=== PATIENT | female | born 1945 | race American Indian/Alaskan Native ===

== ENCOUNTER 2018-01-15 12:46 | Emergency (ER) | payer MEDICARE ==
[2018-01-15 12:56] VITALS: BP 153/66
--- NOTE | 2018-01-15 13:40 | Emergency Department Report ---
ED Rash HPI - HPI Chief Complaint: Skin Rash Stated Complaint: RASH Time Seen by Provider: 01/15/18 13:07 Duration: 3 Days Location: Head Suspected Cause: Unknown Rash Symptoms: Yes Itching, Yes Blistering, No Facial Swelling, No Tongue/Oral Swelling, No Breathing Difficulties, No Choking Sensation, No Wheezing/Dyspnea, No Peeling, No Fever, No Lightheaded, No Malaise, No Myalgias Severity: moderate Other History: This is a 72 y.o. female that presents with painful rash to left side of face starting from forehead to left side of nose. Rash appeared Saturday with just 2 bumps at base of left forehead then yesterday the rash traveled down to nose. Reports left eye has clear discharge w/o redness. Reports rash as very painful. She is not putting anything on rash at this time or taking anything for symptoms. Denies visual changes, swelling, and numbness. ED Review of Systems ROS: Stated complaint: RASH Other details as noted in HPI Constitutional: denies: chills, fever Respiratory: denies: cough, shortness of breath, wheezing Cardiovascular: denies: chest pain, palpitations, syncope Gastrointestinal: denies: abdominal pain, nausea, diarrhea Skin: lesions (rash to left side of face from forehead to nose). denies: rash Neurological: denies: headache, weakness, paresthesias Psychiatric: denies: anxiety, depression ED Past Medical Hx - Past Medical History Hx Diabetes: Yes - Surgical History Past Surgical History?: Yes Additional Surgical History: 1986 Hysterectomy - Social History Smoking Status: Never Smoker Substance Use Type: None - Medications Home Medications: Home Medications Medication Instructions Recorded Confirmed Last Taken Type Acetaminophen/Codeine [Tylenol 1 tab PO Q6H PRN #20 tab 01/15/18 Unknown Rx /Codeine # 3 tab] Carboxymethylcellulose Sodium 15 ml OP QID PRN #1 bottle 01/15/18 Unknown Rx [Refresh Tears] Valacyclovir HCl [Valtrex] 1,000 mg PO TID 7 Days #21 tab 01/15/18 Unknown Rx Rash Exam - Exam General: Vital signs noted. No distress. Alert and acting appropriately. HEENT: No Periorbital Edema, No Conjuctival Injection, No Chemosis, No Perioral Edema, No Tongue Edema, No Uvular Edema, No Compromised Airway, No Drooling Lungs: Yes Good Air Exchange (Normal Breath Sounds), No Wheezes, No Ronchi, No Stridor, No Cough, No Labored Respirations, No Retractions, No Use of Accessory Muscles, No Other Abnormal Lung Sounds Heart: Yes Regular, No Murmur Skin: Yes Maculopapular Rash (erythematous, vesicular dermatomal rash from left side of forehead to nose, with left medial eye), Yes Tenderness, Yes Erythema, Yes Encrustations, No Urticarial Rash, No Morbilliform rash, No Bulla(e), No Excoriations, No Weeping, No Edema ED Course Vital Signs 01/15/18 12:52 Temperature 97.7 F Pulse Rate 92 H Respiratory 16 Rate Blood Pressure 153/66 O2 Sat by Pulse 97 Oximetry ED Medical Decision Making - Medical Decision Making This is a 72 y.o. female that presents with vesicular rash from left forehead to left side of nose. Patient examined by me and stable. No distress noted. Vitals stable. Physical findings susceptible of herpes zoster. Given valtrax 1000 mg po in ER. Start valtrax 1000 mg po bid x 10 days and tylenol 3. Discussed plan with patient and he agreed with plan to treat outpatient. Discharged home. Encouraged to avoid large crowds until lesions are completely crusted. Follow up with PCP in 48-72 hours. Follow up with ophthalmology in 24 hours. Critical care attestation.: If time is entered above; I have spent that time in minutes in the direct care of this critically ill patient, excluding procedure time. ED Disposition Clinical Impression: Herpes zoster Qualifiers: Herpes zoster complications: with ocular involvement Herpes zoster ocular complication detail: unspecified herpes zoster eye disease Qualified Code(s): B02.30 - Zoster ocular disease, unspecified Disposition: -01 TO HOME OR SELFCARE Is pt being admited?: No Does the pt Need Aspirin: No Condition: Stable Instructions: Herpes Zoster (ED) Additional Instructions: Shingles is very contagious so please wash hands frequently and avoid large crowds, elderly, and children. Don't share any towels or bedding to prevent spread of infection. Follow up with Ophthalmology in 24 hours and primary care provider in 2-3 days. Avoid rubbing or touching eyes, because rubbing eyes can cause worsening symptoms. Take medication as prescribed. Return to ER if swelling don't improve or difficulty breathing after 2 days of medication. Prescriptions: Acetaminophen/Codeine [Tylenol /Codeine # 3 tab] 1 tab PO Q6H PRN #20 tab PRN Reason: Pain Carboxymethylcellulose Sodium [Refresh Tears] 15 ml OP QID PRN #1 bottle PRN Reason: Dry Eye(S) Valacyclovir HCl [Valtrex] 1,000 mg PO TID 7 Days #21 tab Referrals: [facility] [Provider Group] - 3-5 Days [facility] [Provider Group] - 3-5 Days [facility] [Provider Group] - 3-5 Days [facility] [Provider Group] - 3-5 Days Time of Disposition: 13:59 Print Language: AZERI
[2018-01-15] MEDS ORDERED: VALTREX PO ONE (14:01)
== END 2018-01-15 14:47 | disposition home or self-care (01) ==
LOC: ED 12:46
DX: B02.9 Zoster without complications (principal); E11.9 Type 2 diabetes mellitus without complications
CPT/HCPCS: 99282

== ENCOUNTER 2020-12-11 13:29 | Emergency (ER) | payer MEDICARE ==
[~2020-12-11 13:29] MED LIST: AMIODARONE 150 MG/3 ML INJ IV ONE; CALCIUM CHLORIDE 1,000 MG/10 ML SYRINGE IV ONE; EPINEPHrine 1 MG/10 ML SYRINGE ONE; MAGNESIUM SULFATE 1 GM/2ML (4 MEQ/1ML) INJ ONE; SODIUM BICARB 8.4% 50 MEQ/50 ML SYRINGE IV ONE
--- NOTE | 2020-12-11 13:56 | Emergency Department Report ---
HPI - General Time Seen by Provider: 12/11/20 13:48 - HPI HPI: This is a 75-year-old -[place] female presents to the emergency department via EMS from home in cardiac arrest. Apparently the initial call was for a respiratory distress. 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 Patient was down, pulseless and unresponsive for about 30 to 35 minutes prior to arrival. She was intubated with a 7.5 endotracheal tube and was receiving bag valve ventilation. She was receiving high-quality chest compressions with the Bimal machine. A left lower extremity intraosseous line was placed and the patient received 3 rounds of epinephrine. She had a blood sugar of about 180 in route. The patient was in asystole during her ED course and there was no return of spontaneous circulation. The patient apparently has a past medical history of hypertension for which he takes "water pills." ED Past Medical Hx - Past Medical History Hx Diabetes: Yes - Surgical History Additional Surgical History: 1985 Hysterectomy - Social History Smoking Status: Never Smoker Substance Use Type: None - Medications Home Medications: Home Medications Medication Instructions Recorded Confirmed Last Taken Type Acetaminophen/Codeine [Tylenol 1 tab PO Q6H PRN #20 tab 01/15/18 Unknown Rx /Codeine # 3 tab] Carboxymethylcellulose Sodium 15 ml OP QID PRN #1 bottle 01/15/18 Unknown Rx [Refresh Tears] Valacyclovir HCl [Valtrex] 1,000 mg PO TID 7 Days #21 tab 01/15/18 Unknown Rx ED Review of Systems ROS: Stated complaint: CARDIC ARREST Other details as noted in HPI Comment: Unobtainable due to pts medical conditions Physical Exam - Physical Exam Physical Exam: GENERAL: Patient is ill-appearing and unresponsive. HENT: Normocephalic. Atraumatic. Endotracheal tube in place. EYES: Pupils are fixed and dilated. NECK: Supple. Trachea appears midline. CHEST/LUNGS: There are no spontaneous respirations. HEART/CARDIOVASCULAR: There are no spontaneous heart sounds. ABDOMEN: Abdomen is soft. There is no abdominal distention. SKIN: Skin is cool but dry. NEURO: Unresponsive. Does not withdraw to painful stimuli. Does not follow any commands. MUSCULOSKELETAL: There is no obvious deformity. There is no evidence of acute injury. No palpable femoral or radial pulses. ED Medical Decision Making - Medical Decision Making The patient presented to the emergency department in cardiac arrest. She was intubated with EMS and was receiving chest compressions by the Bimal compression machine. She had received 3 doses of epinephrine during ACLS protocol and the patient was in asystole during the EMS course. The patient was transferred to the [facility] in bed #41 will be continued ACLS protocol with bag valve ventilation through the endotracheal tube and continued using the Bimal compression machine. The patient was given a dose of epinephrine and sodium bicarbonate. On the first pulse and rhythm check, the patient was in PEA. She remained in PEA through 3 rounds of ACLS protocol. During this time the patient also receiv ed a dose of calcium. On the fourth pulse and rhythm check, the patient was in polymorphic V. tach. She was given a 200 J defibrillation. She was then given epinephrine, magnesium, and amiodarone. On the next pulse and rhythm check, the patient was once again in V. tach and was given another 200 J defibrillation followed by a dose of epinephrine and sodium bicarbonate. On the next pulse and rhythm check, the patient appeared to have a very faint pulse. However, the patient lost this pulse within 20 seconds and once again ACLS protocol was continued. On the next pulse and rhythm check, the patient was in PEA. At this point, the patient had been essentially pulseless and unresponsive for over 1 hour. Time of called at 1346. The patient's and other family did come to the emergency department where I notified them of the patient's expiration. The patient's said that he was sitting there with the patient and went to lay down, but then came back to her about 10 or 20 minutes later and she was unresponsive at that time. Critical Care Time: Yes Critical care time in (mins) excluding proc time.: 31 Critical care attestation.: If time is entered above; I have spent that time in minutes in the direct care of this critically ill patient, excluding procedure time. Critical care time was spent on this patient in doing her initial evaluation, supervision of ACLS protocol, and discussion with the patient's family about her expiration. Critical Care Time: 31 minutes ED Disposition Clinical Impression: Cardiac arrest Acute respiratory failure Qualifiers: Respiratory failure complication: unspecified whether with hypoxia or hypercapnia Qualified Code(s): J96.00 - Acute respiratory failure, unspecified whether with hypoxia or hypercapnia Disposition: DC-20 Is pt being admited?: No Time of Disposition: 15:09
== END 2020-12-11 16:51 ==
LOC: ED 13:29
DX: I46.9 Cardiac arrest, cause unspecified (principal); J96.00 Acute respiratory failure, unspecified whether with hypoxia or hypercapnia; E11.9 Type 2 diabetes mellitus without complications; Z90.710 Acquired absence of both cervix and uterus; Z79.899 Other long term (current) drug therapy
CPT/HCPCS: 92950; 99285; J0171; J0282; J3475